=== PATIENT | male | born 2005 ===

== ENCOUNTER 2024-08-08 14:24 | Outpatient (BNV) | payer OTHER, SELFPAY | END 2024-08-09 11:30 | PROVIDERS: Admitting Provider Psychiatry & Neurology Psychiatry; Responsible Provider Registered Nurse; Visit Provider Radiology Diagnostic Radiology | DX: S60.221A Contusion of right hand, initial encounter (principal) | CPT/HCPCS: 73130 ==

== ENCOUNTER 2024-08-08 14:24 | Inpatient (IN) | payer OTHER, SELFPAY ==
--- NOTE | ~2024-08-08 | XR_ITS ---
EXAMINATION: XR HAND 3 OR MORE VIEWS RIGHT HISTORY: Pain and bruising 5th metacarpal COMPARISON: There are no prior studies available for comparison. FINDINGS: Three views of the right hand are submitted. Osseous mineralization is normal. There is no fracture or dislocation. The joint spaces are preserved. The soft tissues are unremarkable. XR/XR hand RT min 3V IMPRESSION: Unremarkable examination of the right hand. Electronically signed by: Herbert Chavez MD 08/09/2024 12:49 PM EDT
[2024-08-08 14:39] VITALS: BMI 25.7
[2024-08-08 14:40] VITALS: BP 139/66; PULSE 90; RESP 16; TEMP 36.9; O2SAT 97
--- OUTSIDE RECORDS SUMMARY | 2024-08-08 16:18 | XMS_ITS | Encounter Summary ---
Author Organization [facility] Address [address] [place] [phone] Phone Care Team Providers Care Pelota Maker Name Role Phone Herbert Keys MD Primary Care Provider [phone] Encounter Details Date Type Department Care Team (Late st Contact Info) Description 05/06/2009 Documentation [facility] [place] [facility] [address] [place] [address] Family Medicine, Physician [address] [place] [address] Social History Tobacco Use Types Packs/Day Years Used Date Smoking Tobacco: Never Assessed Sex and Gender Information Value Date Recorded Sex Assigned at Not on file Legal Sex Male 6:15 PM EDT Gender Identity Not on file Sexual Orientation Straight 03/13/2021 12 :45 PM EST documented as of this encounter Plan of Treatment Not on file documented as of this encounter Visit Diagnoses Not on filedocumented in this encounter Care Teams Pelota Maker Relationship Specialty Start Date End Date Herbert Keys MD [address] [place] [address] PCP - General Pediatrics 01/21/18 documented as of this encounter
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
[2024-08-08] MEDS: Acetaminophen 325 MG TABLET 650 MG PO (18:35)
--- NOTE | 2024-08-08 19:31 | PC.NURSE ---
This marine underwriter texted a message to both Dr Perrin and Sofi Liz NP. She suggested that this patient would benefit from being placed on a CIWA. The message was read by both providers. Answer pending.
[2024-08-08 20:00] VITALS: BP 140/76; PULSE 104; RESP 18; TEMP 37.3; O2SAT 98
[2024-08-08] MEDS: LORazepam 1 MG TABLET 2 MG PO (20:42)
[2024-08-08 23:54] VITALS: TEMP 36.7
--- NOTE | 2024-08-08 23:59 | PC.NURSE ---
CIWA- difficult to arouse. + response to ativan 2 mg earlier in shift for detox. no diaphoresis. resting with even unlabored respirations.
--- NOTE | 2024-08-09 01:53 | PM.EVENT ---
Event Note Date of Service: 08/09/24 Event Note: pt is a 19 yo male admitted to adult psych. hospitalist consult placed for medical clearance for the psych floor. attempted to see pt but was told by nursing staff the the pt has been difficult to arouse since getting ativan earlier today for etoh withdrawal.he is still currently sleeping comfortably, and was not able to pariticpate in consult at this time. Time Spent With Patient Time: Total time managing care of this patient today ____ minutes.
--- NOTE | 2024-08-09 04:24 | PC.NURSE ---
CIWA--patient sleeping soundly. minimal diaphoresis. respirations even and unlabored. difficult to arouse. slight snoring noted.
[2024-08-09] MEDS: LORazepam 1 MG TABLET PO ×4 (07:25→20:22)
[2024-08-09] MEDS: Nicotine 21 MG PATCH.TD24 TRANSDERMA (08:01)
[2024-08-09] MEDS: Thiamine HCL 100 MG TABLET PO (08:01)
[2024-08-09 08:07] VITALS: BP 140/66; PULSE 88; RESP 16; TEMP 36.7; O2SAT 99
[2024-08-09] MEDS: Acetaminophen 325 MG TABLET 650 MG PO ×2 (08:44→14:51)
[2024-08-09 08:55] LABS: Estimated Average Glucose 94 mg/dL; Hemoglobin A1C 126.3164 umol/L; Hemoglobin A1c % 4.9 % (<6.0); Total Hemoglobin (HGBA1C) 4145.6326 umol/L
[2024-08-09 09:17] LABS: Alanine Aminotransferase 30 U/L (0-40); Albumin Level 4.7 g/dL (3.5-5.0); Anion Gap 13 (12-20); Aspartate Amino Transferase 32 U/L (5-37); Blood Urea Nitrogen 11 mg/dL (9-16); Calcium 9.9 mg/dL (8.4-10.2); Carbon Dioxide 30 mmol/L (22-29); Chloride 105 mmol/L (96-108); Cholesterol 145 mg/dL (<200); Creatinine Clr Calc Pharmacy 142.1; Estimated Glomerular Filt Rate > 60; Glucose Random 89 mg/dL (60-115); HDL Cholesterol 44 mg/dL (>40); LDL Cholesterol Calculated 86 mg/dL (<100); Potassium 4.2 mmol/L (3.3-5.1); Sodium 144 mmol/L (135-145); Total Protein 7.4 g/dL (6.5-8.0); Triglycerides 78 mg/dL (<150)
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
[2024-08-09 12:15] VITALS: BP 144/65; PULSE 83; RESP 16; TEMP 37.2; O2SAT 98
[2024-08-09 13:11] LABS: Alkaline Phosphatase 74 U/L (39-117)
[2024-08-09] MEDS: Nicotine Polacrilex 2 MG GUM 4 MG BUCCAL (15:05)
[2024-08-09] MEDS: Ibuprofen 600 MG TABLET PO (15:52)
[2024-08-09] MEDS: Escitalopram Oxalate 10 MG TABLET PO (15:54)
[2024-08-09] MEDS: guanFACINE HCl ER 1 MG TAB.ER.24H PO (20:22)
[2024-08-09 20:58] VITALS: BP 140/64; PULSE 89; RESP 16; TEMP 37; O2SAT 98
[2024-08-09] MEDS: QUEtiapine Fumarate 25 MG TABLET PO (21:31)
[2024-08-10 07:00] VITALS: BMI 25.4
[2024-08-10] MEDS: Nicotine Polacrilex 2 MG GUM 4 MG BUCCAL (07:43)
[2024-08-10 08:00] VITALS: BP 132/63; PULSE 82; RESP 16; TEMP 37.1; O2SAT 98
[2024-08-10] MEDS: Nicotine 21 MG PATCH.TD24 TRANSDERMA (09:06)
[2024-08-10] MEDS: Escitalopram Oxalate 10 MG TABLET PO (09:09)
[2024-08-10] MEDS: Thiamine HCL 100 MG TABLET PO (09:09)
--- NOTE | 2024-08-10 11:03 | PC.NURSE ---
Patient submitted 3 day notice, up on 08/15/24.
[2024-08-10 12:24] VITALS: BP 140/77; PULSE 101; RESP 20; TEMP 36.3; O2SAT 97
--- NOTE | 2024-08-10 12:41 | P.EN_ITS ---
Event Note Date of Service: 08/10/24 Event Note: Addiction consult placed for patient Patient requesting defensive secondary coach t/w spoke to patient's SW--referral placed by SW Time Spent With Patient Time: Total time managing care of this patient today ____ minutes.
[2024-08-10] MEDS: QUEtiapine Fumarate 25 MG TABLET PO (13:14)
[2024-08-10] MEDS: hydrOXYzine HCL 25 MG TABLET PO (13:32)
--- NOTE | 2024-08-10 13:46 | HO.PSYCHPN ---
Subjective Subjective Date of Service: 08/10/24 Reason For Visit: Unspecified Depressive Disorder Subjective Notes: 3 Day Interim History: Signed 3 day notice, up on 08/15/24. Active on unit. attending groups. Continues on CIWA. Pt feels his withdrawal symptoms are decreasing. Pt reports he feels he is improving; pt stated, I've been thinking a lot, praying and reading the Bible. I feel like I'm in a clear head space . denies SI/HI/VH/AH. denies any side effects from medications. Continue current tx plan. Medication Compliance: Yes Side effects from medications: No Attending Groups: Yes Mental Status Exam Mental Status Exam Narrative: Pt is alert and oriented; behavior is cooperative and calm; dressed in casual attire; mood is described as depressed and anxious ; eye contact appropriate; Speech is normal rate, volume and not pressured; thought process is organized and goal directed; Thought content is on tx; denies SI/HI/VH/AH. Diagnostics Vital Signs (24Hr): Vital Signs - 24 hr 08/09/24 20:58 08/10/24 08:00 08/10/24 12:24 Temperature 98.6 F 98.7 F 97.3 F Pulse Rate 89 82 101 H Respiratory Rate 16 16 20 Blood Pressure 140/64 H 132/63 140/77 H Pulse Oximetry 98 98 97 Oxygen Delivery Method Room Air Room Air Room Air BMI result Body Mass Index 25.4 Labs 08/09/24 07:53 Labs: Laboratory Results - last 48 hr 08/09/24 07:53 Sodium 144 Potassium 4.2 Chloride 105 Carbon Dioxide 30 H Anion Gap 13 BUN 11 Creatinine 0.91 Estim Creat Clear Calc 142.1 Estimated GFR > 60 Random Glucose 89 Estimat Average Glucose 94 Hemoglobin A1c % 4.9 Calcium 9.9 Total Bilirubin 1.0 AST 32 ALT 30 Alkaline Phosphatase 74 Total Protein 7.4 Albumin 4.7 Triglycerides 78 Cholesterol 145 LDL Cholesterol, Calc 86 HDL Cholesterol 44 Imaging Radiology Impressions: ITS Impressions Hand X-Ray 08/09/24 11:30 IMPRESSION: Unremarkable examination of the right hand. Electronically signed by: Herbert Chavez MD 08/09/2024 12:49 PM EDT Medications Medications Current Medications Acetaminophen (Acetaminophen 325 Mg Tablet) 650 mg PO Q6H PRN PRN Reason: Headache/Pain, Scale 1-10 Last Admin: 08/09/24 14:51 Dose: 650 mg Al Hydroxide/Mg Hydroxide (Magnesium Hydrox/Alum Hydrox 30 Ml Oral.Susp) 30 ml PO Q6H PRN PRN Reason: Heartburn/Nausea Escitalopram Oxalate (Escitalopram Oxalate 10 Mg Tablet) 10 mg PO DAILY [facility] Last Admin: 08/10/24 09:09 Dose: 10 mg Guanfacine HCl (Guanfacine Hcl Er 1 Mg Tab.Er.24h) 1 mg PO BEDTIME [facility] Last Admin: 08/09/24 20:22 Dose: 1 mg Hydroxyzine HCl (Hydroxyzine Hcl 25 Mg Tablet) 25 mg PO Q6H PRN PRN Reason: mild anxiety Last Admin: 08/10/24 13:32 Dose: 25 mg Ibuprofen (Ibuprofen 600 Mg Tablet) 600 mg PO Q8H PRN PRN Reason: Pain, Moderate(Pain Scale 4-6) Last Admin: 08/09/24 15:52 Dose: 600 mg Lorazepam (Lorazepam 1 Mg Tablet) 1 mg PO Q2H PRN PRN Reason: CIWA 8-11 Last Admin: 08/09/24 20:22 Dose: 1 mg Lorazepam (Lorazepam 1 Mg Tablet) 2 mg PO Q2H PRN PRN Reason: CIWA 12-15 Last Admin: 08/08/24 20:42 Dose: 2 mg Lorazepam (Lorazepam 1 Mg Tablet) 3 mg PO Q2H PRN PRN Reason: CIWA > 15, and call Magnesium Hydroxide (Milk Of Magnesia 30 Ml Oral.Susp) 30 ml PO DAILY PRN PRN Reason: Constipation Nicotine (Nicotine 21 Mg Patch.Td24) 21 mg TRANSDERMA DAILY [facility] Last Admin: 08/10/24 09:06 Dose: 21 mg Nicotine Polacrilex (Nicotine Polacrilex 2 Mg Gum) 4 mg BUCCAL Q2H PRN PRN Reason: Nicotine Cravings Last Admin: 08/10/24 07:43 Dose: 4 mg Quetiapine Fumarate (Quetiapine Fumarate 25 Mg Tablet) 25 mg PO TID PRN PRN Reason: Anxiety/agitation Last Admin: 08/10/24 13:14 Dose: 25 mg Thiamine HCl (Thiamine Hcl 100 Mg Tablet) 100 mg PO DAILY [facility] Last Admin: 08/10/24 09:09 Dose: 100 mg Trazodone HCl (Trazodone Hcl 50 Mg Tablet) 50 mg PO BEDTIME MRX1 PRN PRN Reason: Insomnia Allergies Allergies Allergy/AdvReac Type Severity Reaction Status Date / Time No Known Allergies Allergy Verified 08/08/24 17:02 Assessment & Plan Assessment & Plan (1) MDD (major depressive disorder), recurrent episode: Status: Acute Code(s): F33.9 - Major depressive disorder, recurrent, unspecified (2) PTSD (post-traumatic stress disorder): Status: Acute Code(s): F43.10 - Post-traumatic stress disorder, unspecified (3) Alcohol use disorder: Status: Acute Code(s): F10.90 - Alcohol use, unspecified, uncomplicated Plan Patient is a 19-year-old male with history of MDD, PTSD and alcohol use disorder who arrived to ER via ambulance due to intentionally ingesting 25-30 pills of Tylenol secondary to increased depression. Plan: CV 15 minute safety checks Obtain collateral CIWA protocol Start: Lexapro 10 mg PO daily Guanfacine 1 mg PO bedtime Seroquel 25 mg PO TID PRN addiction medicine consult for recovery rn referral to outpatient psychiatric providers encourage groups discharge planning 08/10: Signed 3 day notice, up on 08/15/24. Active on unit. attending groups. Continues on CIWA. Pt feels his withdrawal symptoms are decreasing. Pt reports he feels he is improving; pt stated, I've been thinking a lot, praying and reading the Bible. I feel like I'm in a clear head space . denies SI/HI/VH/AH. denies any side effects from medications. Continue current tx plan. Patient educated on: diagnosis, medication risk/benefits and therapeutic strategies Reason for continued inpatient stay Substantial Risk for: med/psych decompensation Time Spent With Patient Time: Total time managing care of this patient today _20___ minutes.
[2024-08-10] MEDS: diphenhydrAMINE HCL 25 MG CAPSULE 50 MG PO (16:10)
[2024-08-10] MEDS: HaloperidoL 5 MG TABLET PO (16:11)
[2024-08-10] MEDS: LORazepam 1 MG TABLET 2 MG PO (16:11)
[2024-08-10 20:00] VITALS: RESP 18
[2024-08-10] MEDS: guanFACINE HCl ER 1 MG TAB.ER.24H PO (21:56)
[2024-08-11] MEDS: Ibuprofen 600 MG TABLET PO ×2 (02:19→11:58)
[2024-08-11] MEDS: LORazepam 1 MG TABLET PO (02:20)
[2024-08-11] MEDS: Acetaminophen 325 MG TABLET 650 MG PO ×2 (07:27→18:31)
[2024-08-11] MEDS: Nicotine 21 MG PATCH.TD24 TRANSDERMA ×2 (07:42→10:25)
[2024-08-11 08:00] VITALS: BP 109/79; PULSE 84; TEMP 36.8; O2SAT 97
[2024-08-11] MEDS: Thiamine HCL 100 MG TABLET PO (08:47)
[2024-08-11] MEDS: Escitalopram Oxalate 10 MG TABLET PO (08:47)
[2024-08-11] MEDS: Nicotine Polacrilex 2 MG GUM 4 MG BUCCAL (09:16)
--- NOTE | 2024-08-11 10:28 | HO.PSYCHPN ---
Subjective Subjective Date of Service: 08/11/24 Reason For Visit: Unspecified Depressive Disorder Subjective Notes: Conditional Voluntary Interim History: Active on unit. attending groups. Denies withdrawal symptoms. KLEBER FRANKS protocol. Pt became upset yesterday afternoon after conversation with his mother. pt flipped over table and chairs in unit office, proceeded to sit on floor and become tearful. Pt reports he felt overwhelmed from conversation with his mother who is requesting pt to pay off my tickets and find a job when discharged. Pt reports he feels he has more hope and ariela today. Pt stated, I feel I see more progress in myself today. I spoke with my mom again and it went well . He is focused on attending therapy to help him with his anger managment when discharged. denies SI/HI/VH/AH. Continue current tx plan. Medication Compliance: Yes Side effects from medications: No Attending Groups: Yes Mental Status Exam Mental Status Exam Narrative: Pt is alert and oriented; behavior is cooperative and calm; dressed in casual attire; mood is described as anxious ; eye contact appropriate; Speech is normal rate, volume and not pressured; thought process is organized and goal directed; Thought content is on tx; denies SI/HI/VH/AH. Diagnostics Vital Signs (24Hr): Vital Signs - 24 hr 08/10/24 12:24 08/10/24 20:00 08/11/24 08:00 Temperature 97.3 F 98.2 F Pulse Rate 101 H 84 Respiratory Rate 20 18 Blood Pressure 140/77 H 109/79 Pulse Oximetry 97 97 Oxygen Delivery Method Room Air Room Air BMI result Body Mass Index 25.4 Labs 08/09/24 07:53 Labs: Laboratory Results - last 48 hr 08/09/24 07:53 Alkaline Phosphatase 74 Imaging Radiology Impressions: ITS Impressions Hand X-Ray 08/09/24 11:30 IMPRESSION: Unremarkable examination of the right hand. Electronically signed by: Herbert Chavez MD 08/09/2024 12:49 PM EDT Medications Medications Current Medications Acetaminophen (Acetaminophen 325 Mg Tablet) 650 mg PO Q6H PRN PRN Reason: Headache/Pain, Scale 1-10 Last Admin: 08/11/24 07:27 Dose: 650 mg Al Hydroxide/Mg Hydroxide (Magnesium Hydrox/Alum Hydrox 30 Ml Oral.Susp) 30 ml PO Q6H PRN PRN Reason: Heartburn/Nausea Escitalopram Oxalate (Escitalopram Oxalate 10 Mg Tablet) 10 mg PO DAILY [facility] Last Admin: 08/11/24 08:47 Dose: 10 mg Guanfacine HCl (Guanfacine Hcl Er 1 Mg Tab.Er.24h) 1 mg PO BEDTIME [facility] Last Admin: 08/10/24 21:56 Dose: 1 mg Hydroxyzine HCl (Hydroxyzine Hcl 25 Mg Tablet) 25 mg PO Q6H PRN PRN Reason: mild anxiety Last Admin: 08/10/24 13:32 Dose: 25 mg Ibuprofen (Ibuprofen 600 Mg Tablet) 600 mg PO Q8H PRN PRN Reason: Pain, Moderate(Pain Scale 4-6) Last Admin: 08/11/24 02:19 Dose: 600 mg Lorazepam (Lorazepam 1 Mg Tablet) 1 mg PO Q2H PRN PRN Reason: CIWA 8-11 Last Admin: 08/11/24 02:20 Dose: 1 mg Lorazepam (Lorazepam 1 Mg Tablet) 2 mg PO Q2H PRN PRN Reason: CIWA 12-15 Last Admin: 08/08/24 20:42 Dose: 2 mg Lorazepam (Lorazepam 1 Mg Tablet) 3 mg PO Q2H PRN PRN Reason: CIWA > 15, and call MD Magnesium Hydroxide (Milk Of Magnesia 30 Ml Oral.Susp) 30 ml PO DAILY PRN PRN Reason: Constipation Nicotine (Nicotine 21 Mg Patch.Td24) 21 mg TRANSDERMA DAILY [facility] Last Admin: 08/11/24 07:42 Dose: 21 mg Nicotine Polacrilex (Nicotine Polacrilex 2 Mg Gum) 4 mg BUCCAL Q2H PRN PRN Reason: Nicotine Cravings Last Admin: 08/11/24 09:16 Dose: 4 mg Quetiapine Fumarate (Quetiapine Fumarate 25 Mg Tablet) 25 mg PO TID PRN PRN Reason: Anxiety/agitation Last Admin: 08/10/24 13:14 Dose: 25 mg Thiamine HCl (Thiamine Hcl 100 Mg Tablet) 100 mg PO DAILY [facility] Last Admin: 08/11/24 08:47 Dose: 100 mg Trazodone HCl (Trazodone Hcl 50 Mg Tablet) 50 mg PO BEDTIME MRX1 PRN PRN Reason: Insomnia Allergies Allergies Allergy/AdvReac Type Severity Reaction Status Date / Time No Known Allergies Allergy Verified 08/08/24 17:02 Assessment & Plan Assessment & Plan (1) MDD (major depressive disorder), recurrent episode: Status: Acute Code(s): F33.9 - Major depressive disorder, recurrent, unspecified (2) PTSD (post-traumatic stress disorder): Status: Acute Code(s): F43.10 - Post-traumatic stress disorder, unspecified (3) Alcohol use disorder: Status: Acute Code(s): F10.90 - Alcohol use, unspecified, uncomplicated Plan Patient is a 19-year-old male with history of MDD, PTSD and alcohol use disorder who arrived to ER via ambulance due to intentionally ingesting 25-30 pills of Tylenol secondary to increased depression. 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 Active on unit. attending groups. Continues on CIWA. Pt feels his withdrawal symptoms are decreasing. Pt reports he feels he is improving; pt stated, I've been thinking a lot, praying and reading the Bible. I feel like I'm in a clear head space . denies SI/HI/VH/AH. denies any side effects from medications. Continue current tx plan. 08/11: Active on unit. attending groups. Denies withdrawal symptoms. DC CIWA protocol. Pt became upset yesterday afternoon after conversation with his mother. pt flipped over table and chairs in unit office, proceeded to sit on floor and become tearful. Pt reports he felt overwhelmed from conversation with his mother who is requesting pt to pay off my tickets and find a job when discharged. Pt reports he feels he has more hope and ariela today. Pt stated, I feel I see more progress in myself today. I spoke with my mom again and it went well . He is focused on attending therapy to help him with his anger managment when discharged. denies SI/HI/VH/AH. Continue current tx plan. Patient educated on: diagnosis, medication risk/benefits and therapeutic strategies Reason for continued inpatient stay Substantial Risk for: med/psych decompensation Time Spent With Patient Time: Total time managing care of this patient today _20___ minutes.
[2024-08-11] MEDS: hydrOXYzine HCL 25 MG TABLET PO ×2 (13:38→20:30)
[2024-08-11 19:33] VITALS: BP 117/57; PULSE 74; RESP 16; TEMP 36.4; O2SAT 98
[2024-08-11] MEDS: guanFACINE HCl ER 1 MG TAB.ER.24H PO (19:57)
[2024-08-11] MEDS: QUEtiapine Fumarate 25 MG TABLET PO (20:30)
[2024-08-12 08:00] VITALS: BP 122/56; PULSE 92; RESP 16; TEMP 37.2; O2SAT 98
[2024-08-12] MEDS: Escitalopram Oxalate 10 MG TABLET PO (08:48)
[2024-08-12] MEDS: Acetaminophen 325 MG TABLET 650 MG PO ×2 (08:52→18:20)
[2024-08-12] MEDS: QUEtiapine Fumarate 25 MG TABLET PO ×2 (09:08→20:13)
[2024-08-12] MEDS: Ibuprofen 600 MG TABLET PO ×2 (10:16→19:38)
[2024-08-12] MEDS: Nicotine 21 MG PATCH.TD24 TRANSDERMA (16:50)
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
[2024-08-12 19:51] VITALS: BP 120/58; PULSE 71; RESP 16; TEMP 36.9; O2SAT 99
[2024-08-12] MEDS: hydrOXYzine HCL 25 MG TABLET PO (20:13)
[2024-08-12] MEDS: traZODone HCL 50 MG TABLET PO ×2 (20:13→22:01)
[2024-08-12] MEDS: guanFACINE HCl ER 1 MG TAB.ER.24H PO (20:13)
[2024-08-13 08:00] VITALS: BP 122/60; PULSE 83; RESP 16; TEMP 35.9; O2SAT 98
[2024-08-13] MEDS: Escitalopram Oxalate 10 MG TABLET PO (09:03)
[2024-08-13] MEDS: Acetaminophen 325 MG TABLET 650 MG PO (09:13)
[2024-08-13] MEDS: Ibuprofen 600 MG TABLET PO (09:14)
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
[2024-08-13 20:00] VITALS: BP 119/68; PULSE 74; RESP 18; TEMP 37; O2SAT 96
[2024-08-13] MEDS: traZODone HCL 50 MG TABLET 150 MG PO (20:43)
[2024-08-13] MEDS: guanFACINE HCl ER 2 MG TAB.ER.24H PO (20:43)
[2024-08-14 07:55] VITALS: BP 105/53; PULSE 89; RESP 14; TEMP 36.5; O2SAT 96
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
[2024-08-14] MEDS: Escitalopram Oxalate 10 MG TABLET PO (08:47)
[2024-08-14] MEDS: hydrOXYzine HCL 25 MG TABLET PO (10:55)
--- NOTE | 2024-08-14 12:16 | P.PNPSI_ITS ---
Subjective Subjective Date of Service: 08/14/24 Reason For Visit: Unspecified Depressive Disorder Subjective Notes: 3 Day Interim History: Active on unit. attending groups. Patient reports feeling better ; some anxiety d/t his mother having surgery today. denies SI/HI/VH/AH. Pt seen by orthopedist d/t pelon; please see consult note. 3 day up 08/16/24; plan to discharge home tomorrow. Pt reports he plans on following up with outpatient providers. Medication Compliance: Yes Side effects from medications: No Attending Groups: Yes Mental Status Exam Mental Status Exam Narrative: Pt is alert and oriented; behavior is cooperative, friendly and calm; dressed in casual attire; mood is described as good ; eye contact appropriate; Speech is normal rate, volume and not pressured; thought process is organized; Thought content is on tx; denies SI/HI/VH/AH. Diagnostics Vital Signs (24Hr): Vital Signs - 24 hr 08/13/24 20:00 08/14/24 07:55 Temperature 98.6 F 97.7 F Pulse Rate 74 89 Respiratory Rate 18 14 Blood Pressure 119/68 105/53 L Pulse Oximetry 96 96 Oxygen Delivery Method Room Air Room Air BMI result Body Mass Index 25.4 Labs 08/09/24 07:53 Imaging Radiology Impressions: ITS Impressions Hand X-Ray 08/09/24 11:30 IMPRESSION: Unremarkable examination of the right hand. Electronically signed by: Herbert Chavez MD 08/09/2024 12:49 PM EDT Medications Medications Current Medications Acetaminophen (Acetaminophen 325 Mg Tablet) 650 mg PO Q6H PRN PRN Reason: Headache/Pain, Scale 1-10 Last Admin: 08/13/24 09:13 Dose: 650 mg Al Hydroxide/Mg Hydroxide (Magnesium Hydrox/Alum Hydrox 30 Ml Oral.Susp) 30 ml PO Q6H PRN PRN Reason: Heartburn/Nausea Escitalopram Oxalate (Escitalopram Oxalate 10 Mg Tablet) 10 mg PO DAILY SHEILA Last Admin: 08/14/24 08:47 Dose: 10 mg Guanfacine HCl (Guanfacine Hcl Er 2 Mg Tab.Er.24h) 2 mg PO BEDTIME SHEILA Last Admin: 08/13/24 20:43 Dose: 2 mg Hydroxyzine HCl (Hydroxyzine Hcl 25 Mg Tablet) 25 mg PO Q6H PRN PRN Reason: mild anxiety Last Admin: 08/14/24 10:55 Dose: 25 mg Ibuprofen (Ibuprofen 600 Mg Tablet) 600 mg PO Q8H PRN PRN Reason: Pain, Moderate(Pain Scale 4-6) Last Admin: 08/13/24 09:14 Dose: 600 mg Magnesium Hydroxide (Milk Of Magnesia 30 Ml Oral.Susp) 30 ml PO DAILY PRN PRN Reason: Constipation Nicotine (Nicotine 21 Mg Patch.Td24) 21 mg TRANSDERMA DAILY [facility] Last Admin: 08/14/24 08:47 Dose: Not Given Nicotine Polacrilex (Nicotine Polacrilex 2 Mg Gum) 4 mg BUCCAL Q2H PRN PRN Reason: Nicotine Cravings Last Admin: 08/11/24 09:16 Dose: 4 mg Quetiapine Fumarate (Quetiapine Fumarate 25 Mg Tablet) 25 mg PO TID PRN PRN Reason: Anxiety/agitation Last Admin: 08/12/24 20:13 Dose: 25 mg Trazodone HCl (Trazodone Hcl 50 Mg Tablet) 150 mg PO BEDTIME SHEILA Last Admin: 08/13/24 20:43 Dose: 150 mg Trazodone HCl (Trazodone Hcl 50 Mg Tablet) 50 mg PO BEDTIME PRN PRN Reason: Insomnia Allergies Allergies Allergy/AdvReac Type Severity Reaction Status Date / Time No Known Allergies Allergy Verified 08/08/24 17:02 Assessment & Plan Assessment & Plan (1) MDD (major depressive disorder), recurrent episode: Status: Acute Code(s): F33.9 - Major depressive disorder, recurrent, unspecified (2) PTSD (post-traumatic stress disorder): Status: Acute Code(s): F43.10 - Post-traumatic stress disorder, unspecified (3) Alcohol use disorder: Status: Acute Code(s): F10.90 - Alcohol use, unspecified, uncomplicated Plan Plan: CV 15 minute safety checks Obtain collateral CIWA protocol Start: Lexapro 10 mg PO daily Guanfacine 1 mg PO bedtime Seroquel 25 mg PO TID PRN addiction medicine consult for organ recovery coordinator referral to outpatient psychiatric providers encourage groups discharge planning 08/10: Signed 3 day notice, up on 08/15/24. Active on unit. attending groups. Continues on CIWA. Pt feels his withdrawal symptoms are decreasing. Pt reports he feels he is improving; pt stated, I've been thinking a lot, praying and reading the Bible. I feel like I'm in a clear head space . denies SI/HI/VH/AH. denies any side effects from medications. Continue current tx plan. 08/11: Active on unit. attending groups. Denies withdrawal symptoms. DC CIMI protocol. Pt became upset yesterday afternoon after conversation with his mother. pt flipped over table and chairs in unit office, proceeded to sit on floor and become tearful. Pt reports he felt overwhelmed from conversation with his mother who is requesting pt to pay off my tickets and find a job when discharged. Pt reports he feels he has more hope and ariela today. Pt stated, I feel I see more progress in myself today. I spoke with my mom again and it went well . He is focused on attending therapy to help him with his anger managment when discharged. denies SI/HI/VH/AH. Continue current tx plan. 08/12: calm, cooperative, stable. denies EtOH w/drawal Sx. continue current mgmt. 3-day up 08/16. 08/13: c/o insomnia. intuniv increased to 2 mg QHS and trazodone scheduled at 150 mg QHS. ortho consult for hand ordered. 08/14: Active on unit. attending groups. Patient reports feeling better ; some anxiety d/t his mother having surgery today. denies SI/HI/VH/AH. Pt seen by orthopedist d/t wrist; please see consult note. 3 day up 08/16/24; plan to discharge home tomorrow. Pt reports he plans on following up with outpatient providers. Patient educated on: diagnosis, medication risk/benefits and therapeutic strategies Reason for continued inpatient stay Substantial Risk for: stable for discharge Time Spent With Patient Time: Total time managing care of this patient today _20___ minutes.
[2024-08-14 20:00] VITALS: BP 122/58; PULSE 77; RESP 14; TEMP 36.9; O2SAT 97
[2024-08-14] MEDS: guanFACINE HCl ER 2 MG TAB.ER.24H PO (20:03)
[2024-08-14] MEDS: traZODone HCL 50 MG TABLET 150 MG PO (20:03)
[2024-08-15 07:54] VITALS: BP 116/59; PULSE 74; RESP 16; TEMP 36.9; O2SAT 99
[2024-08-15] MEDS: Escitalopram Oxalate 10 MG TABLET PO (08:49)
--- NOTE | 2024-08-15 09:19 | P.DS_ITS ---
DS: Providers Provider Date of Service: 08/15/24 Date of admission: 08/08/24 14:24 Date of discharge: 08/15/24 Primary care physician: Unknown Physician Admitting clinician: Sofi Villalpando Attending physician on admission: Jean Ordonez Consults: 08/08/24 18:28 Consult to Hospitalist Routine Comment: Consulting Provider: [facility] Hospitalists Reason For Exam: new admit, h&P 08/09/24 15:53 Addiction Medicine Provider Routine Consulting Provider: Addiction Covering Reason for consultation: interested in job coach/job developer 08/13/24 11:14 Consult to Orthopedics Routine Consulting Provider: [facility] Orthopedic Surgeons Reason for consultation: ? boxer's fx; xrays NEG. pain,swelling, bruising continue Attending physician on discharge: Jean Ordonez Discharging clinician: Sofi Villalpando DS: Diagnosis Discharge Diagnosis (1) MDD (major depressive disorder), recurrent episode: Status: Acute (2) PTSD (post-traumatic stress disorder): Status: Acute (3) Alcohol use disorder: Status: Acute DS: Medications Discharge Medications Home Medications: Previous Rx's ?Medication ?Instructions ?Recorded escitalopram oxalate 10 mg tablet 10 mg PO DAILY 30 days #30 tabs 08/14/24 guanfacine 2 mg tablet,extended 2 mg PO BEDTIME 30 days #30 tabs 08/14/24 release 24 hr quetiapine 25 mg tablet 25 mg PO TID PRN Anxiety/agitation 08/14/24 30 days #90 tabs trazodone 150 mg tablet 150 mg PO BEDTIME 30 days #30 tabs 08/14/24 Mental Status Exam Mental Status Exam Narrative: Pt is alert and oriented; behavior is cooperative, friendly and calm; dressed in casual attire; mood is described as good ; eye contact appropriate; Speech is normal rate, volume and not pressured; thought process is organized; Thought content is on discharge; denies SI/HI/VH/AH. Data Data Completed and Pending Completed studies during hospitalization [Text1]: 08/09/24 07:53 Sodium 144 Potassium 4.2 Chloride 105 Carbon Dioxide 30 H Anion Gap 13 BUN 11 Creatinine 0.91 Estim Creat Clear Calc 142.1 Estimated GFR > 60 Random Glucose 89 Estimat Average Glucose 94 Hemoglobin A1c % 4.9 Calcium 9.9 Total Bilirubin 1.0 AST 32 ALT 30 Alkaline Phosphatase 74 Total Protein 7.4 Albumin 4.7 Triglycerides 78 Cholesterol 145 LDL Cholesterol, Calc 86 HDL Cholesterol 44 Imaging Diagnostic Imaging Impressions Hand X-Ray 08/09/24 11:30 IMPRESSION: Unremarkable examination of the right hand. Electronically signed by: Herbert Chavez MD 08/09/2024 12:49 PM EDT RP DS: Summary Hospital Course Hospital Course: Patient is a 19-year-old male with history of MDD, PTSD and alcohol use disorder who arrived to ER via ambulance due to intentionally ingesting 25-30 pills of Tylenol secondary to increased depression. Per crisis report, patient arrived to ER via ambulance secondary to intentionally ingesting 25-30 pills of extra-strength Tylenol. Patient reports this was an attempt to end his life. He reports increased number of stressors. Patient reports he went to his mother's home to shower and instead went into her medicine cabinet, Googled which one would be deadly and took it. Patient reports feeling remorseful because he took the medication and because he did not complete his suicidal gesture. Patient reports having mixed feelings about being alive. Crying throughout the assessment and feeling embarrassed for showing emotions to others. U tox positive for marijuana. History of 2 other inpatient psychiatric hospitalizations. History of PHP when he was a child. History of superficial cutting. He reports poor sleep. denies HI/VH/AH. patient reports the suicidal gesture felt impulsive. He reports history of suicidal gestures and reports another overdose a few weeks ago resulting medical admit but no psychiatric care. Patient reports losing his girlfriend, job and independent housing and requiring him to move in with his mother, have been contributing to his depression. Patient does not take any home medications. He does not have outpatient psychiatric providers at this time. During admission assessment, patient presents alert and oriented x3. Calm and cooperative. Patient reports feeling anxious and depressed ; patient stated, I was dating this girl and found out she was cheating on me. She was and I wanted a DNA test. She got an without telling me and I broke up with her. I also got fired from my job and couldn't afford my apartment so I moved into my mom's. I was drinking and I put a hole in the wall so she kicked me out. All the stress together was in my mind. I see myself becoming like my dad, being a loser. I thought that there is no point . Patient reports drinking a sleeve of nips and a 40 oz of alcohol daily for the last 6 months. Denies any other substance use. Patient reports history of taking Lexapro, guanfacine, Lamictal when he was younger however, he was inconsistent with taking these medications and is unclear if these were beneficial. Patient reports he is feeling lots of guilt due to suicide attempt. Patient stated, I feel guilty and sadness because of what I did. It took me to be sober to realize that. I never took accountability for anything. I want to show my mom that I can change. Get a job, get my own apartment and maybe go to college . Patient reports he is interested in referrals to outpatient psychiatric providers and speaking to a job coach/job developer. Pt reports he would be interested in attending anger management courses to help him with coping when he gets angry. Addiction medicine consult placed for job coach/job developer. Patient reports poor sleep but good appetite. He denies SI/HI/VH/AH. Patient reports history of superficially cutting. CV 15 minute safety checks Obtain collateral CIWA protocol Start: Lexapro 10 mg PO daily Guanfacine 1 mg PO bedtime Seroquel 25 mg PO TID PRN addiction medicine consult for job coach/job developer referral to outpatient psychiatric providers encourage groups discharge planning Signed 3 day notice, up on 08/15/24. Active on unit. attending groups. Continues on CIWA. Pt feels his withdrawal symptoms are decreasing. Pt reports he feels he is improving; pt stated, I've been thinking a lot, praying and reading the Bible. I feel like I'm in a clear head space . denies SI/HI/VH/AH. denies any side effects from medications. Continue current tx plan. Active on unit. attending groups. Denies withdrawal symptoms. DC CIWA protocol. Pt became upset yesterday afternoon after conversation with his mother. pt flipped over table and chairs in unit office, proceeded to sit on floor and become tearful. Pt reports he felt overwhelmed from conversation with his mother who is requesting pt to pay off my tickets and find a job when discharged. Pt reports he feels he has more hope and ariela today. Pt stated, I feel I see more progress in myself today. I spoke with my mom again and it went well . He is focused on attending therapy to help him with his anger managment when discharged. denies SI/HI/VH/AH. Continue current tx plan. calm, cooperative, stable. denies EtOH w/drawal Sx. continue current mgmt. 3- day up 08/16. c/o insomnia. intuniv increased to 2 mg QHS and trazodone scheduled at 150 mg QHS. ortho consult for hand ordered. Active on unit. attending groups. Patient reports feeling better ; some anxiety d/t his mother having surgery today. denies SI/HI/VH/AH. Pt seen by orthopedist d/t wrist; please see consult note. 3 day up 08/16/24; plan to discharge home tomorrow. Pt reports he plans on following up with outpatient providers. Status at Discharge Cognitive/behavioral status at discharge: Patient has insight and demonstrates good judgment in terms of wanting to pursue treatment. Patient has a safety plan that includes presenting to the closest ER or calling 911 if feeling unsafe. Functional status at discharge: independent ambulation Overall status at discharge: patient is back to baseline Time Spent with Patient Time attestation: Total time managing care of this patient today _20___ minutes. Time spent: Less than 30 minutes Discharge Plan Discharge Anticipated Discharge Date/Time: 08/15/24 11:00 Patient Disposition: Home, Self-Care Discharge Diagnosis: MDD, PTSD, Alcohol use d/o Referrals: Therapy & Psychiatry [Other] - 08/16/24 10:00 am (*This appointment will take place at your home. The clinician will arrive at 10am. During this appointment, please notify the clinician that moving forward you would like your appointments to take place at the [facility] location. ) Allan Nieto (Extruder Operator) [Other] - 1 Week (*Please follow up with Allan, the director of job coach/job developer services, regarding the referral that was placed on your behalf for a job coach/job developer. *You can also reach Allan at [phone]) if you have any further follow up questions. ) [facility] [Provider Group] - 1 Week (08-14-24 [facility] was added to patients chart. Please call [phone] to schedule a follow up appt within 7-10 days of discharge. No release or PCP on file.) Discharge Medications: New guanfacine 2 mg Tablet Extended Release 24 Hr 2 mg PO BEDTIME 30 Days Qty: 30 0RF escitalopram oxalate 10 mg Tablet 10 mg PO DAILY 30 Days Qty: 30 0RF quetiapine 25 mg Tablet 25 mg PO TID PRN (Reason: Anxiety/agitation) 30 Days Qty: 90 0RF trazodone 150 mg tablet 150 mg PO BEDTIME 30 Days Qty: 30 0RF Discharge Orders: Discharge Order (Routine); Ordered 08/15/24 Ordered By: Sofi Villalpando Diet: Regular diet Activity on Discharge: As tolerated Stand Alone Forms: Patient Portal Discharge page, Community Support Print Language: [place] Care Plan Goals: Maintain mood and safe behaviors Take medications as prescribed Continue to pursue sobriety Practice coping skills Continue with outpatient providers and reach out to them as needed Health Concerns: Mood stability and behaviors Sobriety Plan of Treatment: Follow up with your PCP, psychiatric provider and other outpatient providers regarding above concerns Take medications as prescribed Assessment: Patient has insight and demonstrates good judgment in terms of wanting to pursue treatment. Patient has a safety plan that includes presenting to the closest ER or calling 911 if feeling unsafe. Discharge Date/Time: 08/15/24 11:35
== END 2024-08-15 11:35 | disposition home or self-care (01) | DRG 885 ==
PROVIDERS: Admitting Provider Psychiatry & Neurology Psychiatry; Responsible Provider Registered Nurse; Visit Provider Psychiatry & Neurology Psychiatry
DX: F33.9 Major depressive disorder, recurrent, unspecified (principal); M79.641 Pain in right hand; F43.10 Post-traumatic stress disorder, unspecified; Z91.51 Personal history of suicidal behavior; Z87.891 Personal history of nicotine dependence; Z79.899 Other long term (current) drug therapy
CPT/HCPCS: 36415; 73130; 80053; 80061; 83036

== ENCOUNTER → 2024-08-08 14:24 | Outpatient (BNV) | payer OTHER, SELFPAY | PROVIDERS: Admitting Provider Psychiatry & Neurology Psychiatry; Responsible Provider Registered Nurse; Visit Provider Nurse Practitioner Psychiatric/Mental Health | DX: F33.2 Major depressive disorder, recurrent severe without psychotic features (principal); F43.11 Post-traumatic stress disorder, acute; F10.90 Alcohol use, unspecified, uncomplicated | CPT/HCPCS: 90792; 99231; 99232; 99238; 99499 ==

== ENCOUNTER → 2024-08-08 14:24 | Outpatient (BNV) | payer SELFPAY | PROVIDERS: Admitting Provider Psychiatry & Neurology Psychiatry; Visit Provider Physician Assistant | DX: M79.641 Pain in right hand (principal) | CPT/HCPCS: 99221; 99499 ==

== ENCOUNTER → 2024-08-08 14:24 | Outpatient (BNV) | payer OTHER, SELFPAY | PROVIDERS: Admitting Provider Psychiatry & Neurology Psychiatry; Responsible Provider Registered Nurse; Visit Provider Physician Assistant | DX: S60.221A Contusion of right hand, initial encounter (principal) | CPT/HCPCS: 99222 ==